=== PATIENT | female | born 1960 | race Two or more races ===

== ENCOUNTER 2024-11-27 20:58 | Emergency (ER) | payer MEDICAID ==
[~2024-11-27] VITALS: Ht 162.6 cm; Wt 68.0 kg
[2024-11-27 22:58] LABS: PLATELET COUNT (AUTO) 139 K/uL (150-450); RED BLOOD CELL COUNT(AUTO) 2.36 MIL/uL (4.0-5.2); RED CELL DISTRIBUTION WIDTH 15.1 % (11.5-15.0); WHITE BLOOD COUNT (AUTO) 4.5 K/uL (4.3-11.0)
[2024-11-27 23:05] LABS: APPEARANCE,URINE CLEAR (CLEAR); BLOOD, URINE NEGATIVE Ery/uL (NEGATIVE); LEUKOCYTE ESTERASE ,URINE NEGATIVE (NEGATIVE); NITRITE, URINE NEGATIVE (NEGATIVE); UGLUCOSE NEGATIVE (NEGATIVE)
[2024-11-27 23:06] LABS: CALCIUM, SERUM 9.0 mg/dL (8.5-10.1); CREATININE 1.8 mg/dL (0.6-1.3); SODIUM SERUM 143 mmol/L (136-145); UREA NITROGEN, BLOOD 26 mg/dL (7-18)
[2024-11-27 23:11] LABS: ASPARTATE AMINOTRANSFERASE 14 U/L (15-37); TOTAL PROTEIN, SERUM 5.0 g/dL (6.4-8.2)
[2024-11-27 23:13] LABS: AMPHETAMINE, URINE NEGATIVE (NEGATIVE); BARBITURATE, URINE NEGATIVE (NEGATIVE); BENZODIAZEPINE, URINE NEGATIVE (NEGATIVE); CANNABINOID, URINE NEGATIVE (NEGATIVE); COCCAINE, URINE NEGATIVE (NEGATIVE); OPIATE, URINE NEGATIVE (NEGATIVE)
[2024-11-28 01:09] LABS: OCCULT BLOOD STOOL NEGATIVE (NEGATIVE)
[2024-11-28] MEDS ORDERED: HALOPERIDOL LACTATE INJ 5 MG/ML VIAL ONE (04:27)
[2024-11-28] MEDS: HALOPERIDOL LACTATE INJ 5 MG/ML VIAL IM ONE (04:31)
[2024-11-28] MEDS ORDERED: DULO60CA45 PO (12:16)
[2024-11-28] MEDS ORDERED: LOSA100T31 PO (12:16)
[2024-11-28] MEDS ORDERED: LORA-259 PO (12:16)
[2024-11-28] MEDS ORDERED: FENT1PAT4 TD (12:16)
[2024-11-28] MEDS ORDERED: FURO20TA4 PO (12:16)
[2024-11-28] MEDS ORDERED: ALLO100T PO (12:16)
[2024-11-28] MEDS ORDERED: MIDO10TA PO (12:16)
[2024-11-28] MEDS ORDERED: BISA10SU11 RC (12:16)
[2024-11-28] MEDS ORDERED: MELO15TA13 PO (12:16)
[2024-11-28] MEDS ORDERED: FAMO20TA8 PO (12:16)
[2024-11-28] MEDS ORDERED: DEXA4TAB68 PO (12:16)
[2024-11-28] MEDS ORDERED: DOCU100C36 PO (12:16)
[2024-11-28] MEDS ORDERED: TRAZ-182 PO (12:16)
[2024-11-28] MEDS ORDERED: CARV6.25 PO (12:16)
[2024-11-28] MEDS ORDERED: FERR325T24 PO (12:16)
[2024-11-28] MEDS ORDERED: ACYC400T19 PO (12:16)
[2024-11-28] MEDS ORDERED: ERGO500093 PO (12:16)
[2024-11-28] MEDS ORDERED: ASCO500T10 PO (12:16)
[2024-11-28] MEDS ORDERED: RISP0.5T65 PO (12:16)
[2024-11-28] MEDS ORDERED: ACET325T53 PO (12:16)
[2024-11-28] MEDS ORDERED: CRAN300T PO (12:16)
[2024-11-28] MEDS ORDERED: ONDA-97 PO (12:16)
[2024-11-28] MEDS ORDERED: ATOR20TA PO (12:16)
[2024-11-28] MEDS ORDERED: FOLI0.8T3 PO (12:16)
[2024-11-28] MEDS ORDERED: ASPI-1420 PO (12:16)
[2024-11-28] MEDS ORDERED: NA P133E RC (12:16)
[2024-11-28] MEDS ORDERED: ISOS30TA86 PO (12:16)
[2024-11-28] MEDS ORDERED: GABA-532 PO (12:16)
[2024-11-28] MEDS ORDERED: LOPE2CAP40 PO (12:16)
[2024-11-28] MEDS ORDERED: MAGN400O6 PO (12:16)
[2024-11-28] MEDS ORDERED: LEVO75TA7 PO (12:16)
[2024-11-28] MEDS ORDERED: BUPR-78 PO (12:16)
[2024-11-28 12:20] VITALS: BP 135/79; TEMP 97.9; O2SAT 98
== END 2024-11-28 12:50 | disposition home or self-care (01) ==
LOC: ER 21:11
DX: R45.1 Restlessness and agitation (principal); C90.00 Multiple myeloma not having achieved remission; E78.5 Hyperlipidemia, unspecified; F03.911 Unspecified dementia, unspecified severity, with agitation; Z79.1 Long term (current) use of non-steroidal anti-inflammatories (NSAID); Z79.624 Long term (current) use of inhibitors of nucleotide synthesis; Z79.82 Long term (current) use of aspirin; Z79.899 Other long term (current) drug therapy; Z20.822 Contact with and (suspected) exposure to COVID-19
CPT/HCPCS: 99285; 85025; 80048; 80076; 36415; 80143; 80307; 81003; 87426; 96372; 82272; J1630

== ENCOUNTER 2025-02-02 17:51 | Inpatient (IN) | payer MEDICARE, MEDICAID ==
[~2025-02-02] VITALS: Ht 167.6 cm; Wt 82.1 kg
[~2025-02-02 17:51] MED LIST: ACET325T53 PO; ACYC400T19 PO; ALLO100T PO; ASCO500T10 PO; ASPI-1420 PO; ATOR20TA PO; BISA10SU11 RC; BUPR-78 PO; CARV6.25 PO; CRAN300T PO; DEXA4TAB68 PO; DOCU100C36 PO; DULO60CA45 PO; ERGO500093 PO; FAMO20TA8 PO; FENT1PAT4 TD; FERR325T24 PO; FOLI0.8T3 PO; FURO20TA4 PO; GABA-532 PO; ISOS30TA86 PO; LEVO75TA7 PO; LOPE2CAP40 PO; LORA-259 PO; LOSA100T31 PO; MAGN400O6 PO; MELO15TA13 PO; MIDO10TA PO; NA P133E RC; ONDA-97 PO; RISP0.5T65 PO; TRAZ-182 PO
[2025-02-02 18:33] LABS: PLATELET COUNT (AUTO) 139 K/uL (150-450); RED BLOOD CELL COUNT(AUTO) 3.31 MIL/uL (4.0-5.2); RED CELL DISTRIBUTION WIDTH 13.3 % (11.5-15.0); WHITE BLOOD COUNT (AUTO) 5.6 K/uL (4.3-11.0)
[2025-02-02 18:40] LABS: APPEARANCE,URINE CLEAR (CLEAR); BLOOD, URINE NEGATIVE Ery/uL (NEGATIVE); LEUKOCYTE ESTERASE ,URINE NEGATIVE (NEGATIVE); NITRITE, URINE NEGATIVE (NEGATIVE); UGLUCOSE NEGATIVE (NEGATIVE)
[2025-02-02 18:43] LABS: CALCIUM, SERUM 9.1 mg/dL (8.5-10.1); CREATININE 1.6 mg/dL (0.6-1.3); SODIUM SERUM 143 mmol/L (136-145); UREA NITROGEN, BLOOD 38 mg/dL (7-18)
[2025-02-02 18:48] LABS: ALCOHOL, BLOOD < 3 mg/dL (0-10); ASPARTATE AMINOTRANSFERASE 31 U/L (15-37); TOTAL PROTEIN, SERUM 6.3 g/dL (6.4-8.2)
[2025-02-02 18:49] LABS: AMPHETAMINE, URINE NEGATIVE (NEGATIVE); BARBITURATE, URINE NEGATIVE (NEGATIVE); BENZODIAZEPINE, URINE NEGATIVE (NEGATIVE); CANNABINOID, URINE NEGATIVE (NEGATIVE); COCCAINE, URINE NEGATIVE (NEGATIVE); OPIATE, URINE NEGATIVE (NEGATIVE)
[2025-02-02 18:54] LABS: ADD URINE CULTURE NO; SQUAMOUS EPITHELIAL CELL,UR 0-2 /HPF (None Seen); YEAST,URINE Rare /HPF (None Seen)
[2025-02-02 21:58] VITALS: BP 125/79; TEMP 98.1; O2SAT 98
[2025-02-02] MEDS ORDERED: MAGNESIUM HYDROXIDE 30 ML UDC PO PRN (22:30)
[2025-02-02] MEDS ORDERED: TEMAZEPAM 7.5 MG CAPSULE PO PRN (22:30)
[2025-02-02] MEDS ORDERED: MAG HYDROX/AL HYDROX/SIMETH 30 ML UDC PO PRN (22:30)
[2025-02-02] MEDS ORDERED: LORAZEPAM 0.5 MG TABLET PO PRN (22:30)
[2025-02-02] MEDS: BLOOD SUGAR DIAGNOSTIC 1 EACH STRIP IN ONE (22:32)
[2025-02-03 08:00] VITALS: BP 142/68; TEMP 97.8; O2SAT 96
[2025-02-03 08:32] LABS: ASPARTATE AMINOTRANSFERASE 30.0 U/L (15-37); CALCIUM, SERUM 8.9 mg/dL (8.5-10.1); CREATININE 1.0 mg/dL (0.6-1.3); SODIUM SERUM 141.0 mmol/L (136-145); TOTAL PROTEIN, SERUM 6.0 g/dL (6.4-8.2); UREA NITROGEN, BLOOD 30.0 mg/dL (7-18)
[2025-02-03 08:35] LABS: LDL 70 mg/dL (0-99)
[2025-02-03] MEDS: ASCORBIC ACID 500 MG TABLET PO SCH (08:49)
[2025-02-03] MEDS: FOLIC ACID 1 MG TABLET PO SCH (08:49)
[2025-02-03] MEDS: GABAPENTIN 100 MG CAPSULE PO SCH (08:49)
[2025-02-03] MEDS: FUROSEMIDE 20 MG TABLET PO SCH (08:49)
[2025-02-03] MEDS: FERROUS SULFATE (325 MG) 325 MG/TAB TABLET PO SCH (08:49)
[2025-02-03] MEDS: LEVOTHYROXINE SODIUM 75 MCG TABLET PO SCH (08:50)
[2025-02-03] MEDS: ASPIRIN EC 81 MG TABLET.DR PO SCH (08:50)
[2025-02-03] MEDS: ALLOPURINOL 100 MG TABLET PO SCH (08:50)
[2025-02-03] MEDS: ISOSORBIDE MONONITRATE (30MG) 30 MG TAB.SR.24H PO SCH (08:50)
[2025-02-03] MEDS: FAMOTIDINE (20 MG) 20 MG TABLET PO SCH (08:50)
[2025-02-03] MEDS: DOCUSATE SODIUM 100 MG CAPSULE PO SCH (08:50)
[2025-02-03] MEDS: CARVEDILOL 6.25 MG TABLET PO SCH (08:53)
[2025-02-03] MEDS: LOSARTAN POTASSIUM 50 MG TABLET PO SCH (09:04)
[2025-02-03] MEDS: ACYCLOVIR 800 MG TABLET PO SCH (09:04)
[2025-02-03 16:00] VITALS: BP 168/87; TEMP 98; O2SAT 96
[2025-02-03 21:05] VITALS: BP 137/89; TEMP 97.5; O2SAT 99
[2025-02-03] MEDS: ATORVASTATIN 10 MG TABLET PO SCH (21:05)
[2025-02-03] MEDS: TEMAZEPAM 7.5 MG CAPSULE PO PRN (21:05)
[2025-02-04 07:22] LABS: PLATELET COUNT (AUTO) 142 K/uL (150-450); RED BLOOD CELL COUNT(AUTO) 3.12 MIL/uL (4.0-5.2); RED CELL DISTRIBUTION WIDTH 13.3 % (11.5-15.0); WHITE BLOOD COUNT (AUTO) 7.5 K/uL (4.3-11.0)
[2025-02-04 07:44] LABS: PHOSPHORUS 3.3 mg/dL (2.5-4.9)
[2025-02-04 07:48] LABS: CREATINE KINASE, TOTAL 126.0 U/L (26-192)
[2025-02-04 08:04] VITALS: BP 111/73; TEMP 98.2; O2SAT 98
[2025-02-04 16:00] VITALS: BP 123/65; TEMP 97.7; O2SAT 98
[2025-02-04] MEDS: DIVALPROEX SODIUM 250 MG TABLET.DR PO SCH (16:22)
[2025-02-04 20:00] VITALS: BP 100/59; TEMP 97.7; O2SAT 100
[2025-02-05 06:11] LABS: PTH, INTACT 40 pg/mL (15-65)
[2025-02-05 08:00] VITALS: BP 122/72; TEMP 98.4; O2SAT 98
[2025-02-05 10:25] LABS: PLATELET COUNT (AUTO) 168 K/uL (150-450); RED BLOOD CELL COUNT(AUTO) 3.61 MIL/uL (4.0-5.2); RED CELL DISTRIBUTION WIDTH 13.5 % (11.5-15.0); WHITE BLOOD COUNT (AUTO) 6.1 K/uL (4.3-11.0)
[2025-02-05 10:33] LABS: ASPARTATE AMINOTRANSFERASE 17.0 U/L (15-37); CALCIUM, SERUM 8.8 mg/dL (8.5-10.1); CREATININE 1.0 mg/dL (0.6-1.3); PHOSPHORUS 3.7 mg/dL (2.5-4.9); SODIUM SERUM 143.0 mmol/L (136-145); TOTAL PROTEIN, SERUM 6.1 g/dL (6.4-8.2); UREA NITROGEN, BLOOD 26.0 mg/dL (7-18)
[2025-02-05] MEDS: DIVALPROEX SODIUM 250 MG TABLET.DR PO SCH (12:30)
[2025-02-05 16:00] VITALS: BP 143/81; TEMP 97.7; O2SAT 97
[2025-02-05 20:26] VITALS: BP 140/77; TEMP 98.6; O2SAT 97
[2025-02-06 06:18] VITALS: BP 133/56; TEMP 98.7; O2SAT 97
[2025-02-06 08:00] VITALS: BP 149/67; TEMP 97.3; O2SAT 97
[2025-02-06 16:00] VITALS: BP 122/70; TEMP 97.5; O2SAT 96
[2025-02-06 22:13] VITALS: BP 114/62; TEMP 97.8; O2SAT 97
[2025-02-07] MEDS: LORAZEPAM 0.5 MG TABLET PO PRN (03:49)
[2025-02-07 08:00] VITALS: BP 141/88; TEMP 98.2; O2SAT 97
[2025-02-07 08:13] VITALS: BP 141/88; TEMP 98.2; O2SAT 97
[2025-02-07 16:07] VITALS: BP 143/96; TEMP 97.7; O2SAT 100
[2025-02-07 20:40] VITALS: BP 138/93; TEMP 97.8; O2SAT 98
[2025-02-08 08:00] VITALS: BP 136/89; TEMP 98.7; O2SAT 98
[2025-02-08 10:12] LABS: *SPE A/G RATIO 1.3 (0.7-1.7); *SPE ALBUMIN 2.9 g/dL (2.9-4.4); *SPE ALPHA-1-GLOBULIN 0.2 g/dL (0.0-0.4); *SPE ALPHA-2-GLOBULIN 0.7 g/dL (0.4-1.0); *SPE BETA GLOBULIN 0.8 g/dL (0.7-1.3); *SPE GLOBULIN, TOTAL 2.3 g/dL (2.2-3.9); *SPE M-SPIKE 0.3 g/dL (Not Observed); *SPE PROTEIN TOTAL 5.2 g/dL (6.0-8.5); *SPEGAMMA GLOBULIN 0.6 g/dL (0.4-1.8)
[2025-02-08 16:00] VITALS: BP 137/91; TEMP 97.5; O2SAT 99
[2025-02-08 16:09] VITALS: BP 137/91; TEMP 97.5; O2SAT 99
[2025-02-08 20:00] VITALS: BP 125/65; TEMP 97.9; O2SAT 97
[2025-02-09] MEDS: ACETAMINOPHEN 325 MG TABLET PO PRN (04:06)
[2025-02-09 08:00] VITALS: BP 100/71; TEMP 97.7; O2SAT 100
[2025-02-09 16:00] VITALS: BP 131/94; TEMP 98.7; O2SAT 98
[2025-02-09 21:01] VITALS: BP 159/85; TEMP 98.3; O2SAT 98
[2025-02-10 08:00] VITALS: BP 131/89; TEMP 98.2; O2SAT 97
[2025-02-10 15:00] VITALS: BP 120/75; TEMP 97.9; O2SAT 98
[2025-02-10 20:11] VITALS: BP 95/86; TEMP 98.2; O2SAT 95
[2025-02-11 20:30] VITALS: BP 128/91; TEMP 98.2; O2SAT 99
[2025-02-12 08:00] VITALS: BP 100/62; TEMP 97.3; O2SAT 99
[2025-02-12] MEDS: DIVALPROEX SODIUM 500 MG TABLET.DR PO SCH (09:00)
[2025-02-12 16:00] VITALS: BP 123/69; TEMP 99; O2SAT 100
[2025-02-12] MEDS ORDERED: IBUPROFEN 600 MG TABLET PO PRN (18:30)
[2025-02-12 20:00] VITALS: BP 105/63; TEMP 98.1; O2SAT 99
[2025-02-12 22:00] VITALS: BP 119/68; TEMP 98; O2SAT 99
[2025-02-13 08:00] VITALS: BP 149/69; TEMP 98.1; O2SAT 96
[2025-02-13 20:31] VITALS: BP 112/67; TEMP 98.2; O2SAT 98
[2025-02-14 08:35] VITALS: BP 106/59; TEMP 98.6; O2SAT 100
[2025-02-14 16:00] VITALS: BP 119/77; TEMP 97.7; O2SAT 99
[2025-02-14 20:34] VITALS: BP 119/50; TEMP 99; O2SAT 99
[2025-02-15 08:00] VITALS: BP 138/87; TEMP 98.1; O2SAT 99
[2025-02-15 15:43] VITALS: BP 144/77; TEMP 98.1; O2SAT 100
[2025-02-15 20:52] VITALS: BP 126/72; TEMP 97.8; O2SAT 98
[2025-02-16 06:47] LABS: ASPARTATE AMINOTRANSFERASE 13.0 U/L (15-37); CALCIUM, SERUM 8.4 mg/dL (8.5-10.1); CREATININE 0.7 mg/dL (0.6-1.3); SODIUM SERUM 145.0 mmol/L (136-145); TOTAL PROTEIN, SERUM 5.6 g/dL (6.4-8.2); UREA NITROGEN, BLOOD 16.0 mg/dL (7-18)
[2025-02-16 08:00] VITALS: BP 96/72; TEMP 98.1; O2SAT 98
[2025-02-16 08:30] LABS: VALPROIC ACID 76.0 ug/mL (50-100)
[2025-02-16 12:48] VITALS: BP 140/87; O2SAT 99
[2025-02-16] MEDS: POTASSIUM CHLORIDE 20 MEQ TAB.PRT.SR PO STA (13:07)
== END 2025-02-16 13:15 | DRG 885 ==
LOC: ER 17:59 → GPS 21:02
PROVIDERS: ADMIT Psychiatry & Neurology Psychosomatic Medicine; ATTEND Internal Medicine
DX: F39 Unspecified mood [affective] disorder (principal); N17.0 Acute kidney failure with tubular necrosis; I11.0 Hypertensive heart disease with heart failure; C90.00 Multiple myeloma not having achieved remission; D69.6 Thrombocytopenia, unspecified; D63.8 Anemia in other chronic diseases classified elsewhere; E86.0 Dehydration; F03.93 Unspecified dementia, unspecified severity, with mood disturbance; F29 Unspecified psychosis not due to a substance or known physiological condition; E03.9 Hypothyroidism, unspecified; F12.11 Cannabis abuse, in remission; E78.5 Hyperlipidemia, unspecified; E83.89 Other disorders of mineral metabolism; Z20.822 Contact with and (suspected) exposure to COVID-19; F25.0 Schizoaffective disorder, bipolar type; Z79.899 Other long term (current) drug therapy; I50.9 Heart failure, unspecified
CPT/HCPCS: 36415; 80048-TC; 80053-TC; 80061-TC; 80076-TC; 80164-TC; 81001; 82550-TC; 82962-TC; 83735-TC; 83970; 84100-TC; 84155; 84165; 85025-TC; 87081-TC; 97112-TC; 97116-TC; 97530-TC; G0480; J8540